=== PATIENT | female | born 1965 | race Caucasian/White ===

== ENCOUNTER 2021-06-29 10:20 | Emergency (ER) | payer BC ==
[2021-06-29] MEDS ORDERED: NAPROXEN 500 MG TABLET PO ONE (10:29)
[2021-06-29 10:40] VITALS: BP 152/72; PULSE 72; TEMP 98; BMI 22.3
[2021-06-29] MEDS ORDERED: NAPROXEN 500 MG TABLET ONE (10:42)
== END 2021-06-29 11:15 | disposition home or self-care (01) ==
LOC: FER 10:20
DX: S62.647A Nondisplaced fracture of proximal phalanx of left little finger, initial encounter for closed fracture (principal); W01.0XXA Fall on same level from slipping, tripping and stumbling without subsequent striking against object, initial encounter
CPT/HCPCS: 73130-TC-LT-FY; 99283-25